=== PATIENT | male | born 1935 | race Hispanic/Latino ===

== ENCOUNTER 2018-08-02 14:18 | Observation (INO) | payer MEDICARE, BC ==
[2018-08-02 15:41] LABS: #Eosinphils 0.3 thou/uL (0.0-0.7); #Lymphocytes 1.4 thou/uL (1.20-3.40); #Monocytes 0.7 thou/uL (0.11-0.59); #Neutrophils 7.9 thou/uL (1.40-6.50); %Basophils 0.3 % (0.0-1.0); %Eosinophils 2.8 % (0.0-10.0); %Lymphocytes 13.4 % (21.0-51.0); %Monocytes 6.5 % (0.0-10.0); Hemoglobin 15.2 g/dL (14.0-18.0); Mean Corpuscular HGB CONC 33.2 g/dL (32.0-36.0); Mean Corpuscular Hemoglobin 32.2 pg (27.0-31.0); Mean Corpuscular Volume 97.1 fL (78.0-98.0); Mean Platelet Volume 7.1 fL (7.4-10.4); Platelet Count 252 thou/uL (130-400); RBC Distribution Width 12.4 % (11.5-14.5); Red Blood Cell (RBC) Count 4.73 mill/uL (4.70-6.10); White Blood Cell (WBC) Count 10.2 thou/uL (4.8-10.8)
--- NOTE | 2018-08-02 15:50 | CT ---
CT Brain WO Con: 08/02/2018 3:22 PM CLINICAL HISTORY: Syncope. COMPARISON: None. FINDINGS: Hemorrhage: None. Ventricular system: Mild compensatory dilatation related to parenchymal volume loss. Cerebral parenchyma: Microvascular ischemic disease. Small hypodensity of posterior right cerebellar hemisphere indicate lacunar infarction. Midline shift: None. Mass: No mass effect. Calvarium: Normal. Visualized Paranasal sinuses: Scattered mild inflammatory mucosal thickening. IMPRESSION: No acute intracranial hemorrhage or mass effect. Additional details, as discussed above.
--- NOTE | 2018-08-02 16:03 | RAD ---
Exam: Chest one view HISTORY:Syncope Comparison: 08/11/2010 FINDINGS: Lungs: No masses or consolidation. Cardiac silhouette: Normal size Pulmonary vessels: Normal Pleural Spaces: Clear Pneumothorax: None Osseous abnormalities: None of acuity. IMPRESSION: No focal consolidation.
[2018-08-02 16:04] LABS: ALT (SGPT) 12 U/L (8-55); AST (SGOT) 15 U/L (5-34); Albumin 4.1 g/dL (3.4-4.8); Alkaline Phosphatase 57 U/L (40-150); Anion Gap 13 mmol/L (10-20); BUN (Urea Nitrogen) 14 mg/dL (8.4-25.7); Bilirubin, Total 0.6 mg/dL (0.2-1.2); CK (CPK) 113 U/L (30-200); Calc. Creatinine Clearance 0 mL/min (70-130); Calcium 9.5 mg/dL (7.8-10.44); Carbon Dioxide 22 mmol/L (23-31); Chloride 107 mmol/L (98-107); Estimated GFR-MDRD 65; Globulin 3.5 g/dL (2.4-3.5); Glucose 105 mg/dL (83-110); Lipase 33 U/L (8-78); Protein, Total 7.6 g/dL (5.8-8.1); Sodium 138 mmol/L (136-145)
[2018-08-02] MEDS ORDERED: Aspirin Chewable 81 MG TAB ONE (16:59)
[2018-08-02 18:39] LABS: Bilirubin Negative (Negative); Blood, Urine Negative (Negative); Clarity CLEAR (Clear); Glucose, Urine (Dipstick) Negative (Negative); Leukocyte Negative (Negative); Nitrite Negative (Negative); Protein, Urine (Dipstick) Negative (Neg-Trace); Specific Gravity, Urine 1.011 (1.002-1.036); Urobilinogen 0.2 mg/dL (0.2-1.0); pH, Urine 5.5 (5.0-9.0)
[2018-08-02] MEDS ORDERED: Ondansetron PF 4 MG/2 ML Vial IVP PRN ×2 (18:57→20:15)
[2018-08-02] MEDS ORDERED: Ondansetron ODT 4 MG TAB SL PRN (18:57)
[2018-08-02] MEDS ORDERED: Sodium Chloride 0.9% 1,000 ML IV SCH (18:57)
[2018-08-02 19:15] VITALS: BMI 23.0
[2018-08-02 20:02] LABS: Troponin I Less than 0.010 ng/mL (< 0.028)
[2018-08-02] MEDS ORDERED: Benzonatate 100 MG CAP PO PRN (20:15)
[2018-08-02] MEDS ORDERED: Acetaminophen 500 MG TAB PO PRN (20:15)
[2018-08-02] MEDS ORDERED: Ondansetron ODT 4 MG TAB PO PRN (20:15)
[2018-08-02] MEDS ORDERED: Calcium Carbonate 500 MG ChewTAB PO PRN (20:15)
[2018-08-02] MEDS ORDERED: Zolpidem Tartrate 5 MG TAB PO PRN (20:15)
[2018-08-02] MEDS ORDERED: Senokot S 8.6-50 MG TAB PO PRN (20:15)
[2018-08-02 22:18] LABS: Troponin I Less than 0.010 ng/mL (< 0.028)
[2018-08-02] MEDS: Atorvastatin Calcium 40 MG TAB PO SCH (22:38)
--- NOTE | 2018-08-03 02:47 | HP ---
CHIEF COMPLAINT: Syncopal episode. HISTORY OF PRESENT ILLNESS: Patient's family is at bedside including spouse and daughter. They report that patient has had multiple and multiple episodes of bradycardia with hypotension in which he has full blown syncopal episodes to presyncope. Patient has suffered one of these episodes today that was stronger than usual for himself, took longer to come back around to questioning. They were unclear if he had a facial droop. They said his smile was off from his normal. After presenting to the emergency department, the patient appeared to be intact neurologically, he was already diagnosed with dementia on an outpatient basis, started on Aricept and/or Namenda by Dr. Emre Zacarias, his PCP. Patient remains ambulatory and compliant with ADLs at baseline. The only thing he complains of is mild dry cough, for which he states is more from acid reflux issues. He is on PPI on outpatient basis. States that he is followed by Dr. Sullivan. On review of his outpatient medical record, Dr. Sanchez is also followed him in the past regarding Gastroenterology. Most recently, he is followed by Dr. Perrin, last appointment on file was one year ago. He states he has not had an echocardiogram, carotid Doppler in several years, and is due for his Cardiology followup appointment any time now. Family is amicable to performing echo, carotid, and MRI on an inpatient basis when discussing ruling out TIA versus CVA as CT scan did show old lacunar infarct, age indeterminate. Patient has no other acute complaints as his MiraLAX controls his chronic constipation well. Review of vital signs on arrival to floor, temperature of 97.6, pulse of 53, respiratory rate of 16, oxygen saturation 95% on room air, and blood pressure 138/75. LABORATORY WORK: White blood cell count of 10.2, hemoglobin of 15.2, and neutrophil percent of 77. Troponins x2 less than 0.01. TSH of 0.5, lipase of 33. BNP of 38. Sodium 138, potassium of 4.0, creatinine of 1.09, and glucose of 105. AST of 15 , ALT of 12, and albumin of 4.1. Urinalysis unremarkable. Specific gravity is 1.01. Chest x-ray without acute cardiopulmonary events. CT of brain reviewed. No acute intracranial hemorrhage or mass effect. Small hypodense posterior right cerebral hemisphere of lacunar area representing age-indeterminate infarct, marked parenchymal volume loss with encephalomalacia, scattered inflammatory thickening of the mucosal membranes in parasinuses. On review of past medical, social, surgical history, allergies of niacin with pruritis; hyperlipidemia; CKD, stage 2; hypertension; BPH; sleep apnea, on CPAP; dementia; transitioning from Dr. Bertrand 's care from Urology outpatient, hx of prior syncopal episodes. MEDICATIONS: Include; 1. Pravastatin. 2. Gemfibrozil. 3. Fish oil. 4. Aricept. 5. Omeprazole. 6. Aspirin 81 mg. 7. Tamsulosin 0.4. 8. Finasteride 5 mg. Prior hernia repair surgery; remote prior salivary gland removal, year not specified. Patient reports being a nonsmoker. Lives with spouse. He is up to date on pneumococcal and Prevnar by outpatient records. PHYSICAL EXAMINATION: GENERAL: Patient is alert and oriented x2, unable to perform date, does know where he is and who he is and his birthday. Able to fully comply with commands. No acute distress. HEENT: Head is normocephalic and atraumatic. Extraocular movements are intact. Pupillary responses are equal, round, reactive, and accommodate to light bilaterally. Oral mucosa is moist. No appreciable facial droop, however, family does state that his smile is typically different from current at bedside. Patient's speech is normal. NECK: Supple. HEART: Regular rate and rhythm. No murmurs auscultated. LUNGS: Clear to auscultation bilaterally. No rubs or wheezes. Patient does have a dry cough at bedside. ABDOMEN: Soft, nontender. Positive bowel sounds throughout. EXTREMITIES: Lower extremities without cyanosis or edema. Patient is alert and oriented x2, as above. No apparent focal deficits other than his baseline dementia, which appears to wax and wane. Bedside swallowing eval with nursing is passed. Patient has no acute complaints other than his cough. ASSESSMENT AND PLAN: 1. Transient ischemic attack, rule out cerebrovascular accident. 2. Syncopal episode. 3. Obstructive sleep apnea, on CPAP. 4. Bradycardia. 5. Vascular dementia. 6. Questionable sinusitis per CT scan. 7. BPH. 8. Gastroesophageal reflux disease. 9. History of first-degree AV block reviewing Dr. Perrin's Last note. Follow up with MRI, echocardiogram, and carotid Dopplers. We will seek Cardiology's recommendations. Repeat EKG in the morning given the fact that this actually may be cardiogenic syncope given his bradycardia and hypotension. We will follow up with a lacunar infarct evaluation with MRI and get Neurology's opinion if patient needs anything additional than aspirin at this point in time. We will hold patient's tamsulosin and see if his blood pressure remains stable and patient is able to ambulate with walking program or physical therapy tomorrow. We will reinitiate if patient has any obstructive symptoms on urination. Continue PPI. Get respiratory therapy to evaluate patient for CPAP, BiPAP mask tonight. If any signs or symptoms of fever, we will look to treat sinusitis. Otherwise, we will follow up on the throat culture. We will follow up on specialist's recommendations. Continue to follow until Dr. Andrea takes over. Job ID: [id number] MTDD
[2018-08-03] MEDS: Aspirin 325 mg Enteric Coated Tablet PO SCH (08:41)
[2018-08-03 08:46] LABS: Anion Gap 8 mmol/L (10-20); BUN (Urea Nitrogen) 10 mg/dL (8.4-25.7); Calc. Creatinine Clearance 58 mL/min (70-130); Calcium 8.8 mg/dL (7.8-10.44); Carbon Dioxide 25 mmol/L (23-31); Cardiac Risk 3.5 (Less than 4.5); Chloride 109 mmol/L (98-107); Cholesterol 115 mg/dl (< 200 Desired); Estimated GFR-MDRD 72; Glucose 95 mg/dL (83-110); HDL Cholesterol 33 mg/dL (>60 Neg Risk); LDL Cholesterol, Calculated 69 mg/dL; Potassium 3.9 mmol/L (3.5-5.1); Sodium 138 mmol/L (136-145); Triglycerides 63 mg/dL (Less than 150)
[2018-08-03] MEDS: Polyethylene Glycol 3350 17 GM Packet PO SCH (08:49)
--- NOTE | 2018-08-03 11:18 | ULT ---
BILATERAL CAROTID DUPLEX ULTRASOUND: HISTORY: TIA TECHNIQUE: Grayscale, color-flow and spectral Doppler ultrasound imaging of the extracranial carotid artery syst ems was performed bilaterally. FINDINGS: Mild plaque formation. The peak systolic velocity in the right ICA measures 80 cm/s. The peak systolic velocity in the left ICA measures 64 cm/s. Vertebral flow: antegrade, bilaterally. IMPRESSION: No hemodynamically significant stenosis of Both ICAs.
--- NOTE | 2018-08-03 11:55 | MRI ---
MRI Brain WO Con: 08/03/2018 12:00 AM CLINICAL HISTORY: TIA. COMPARISON: None. FINDINGS: Extra axial spaces: Normal in size and morphology for the patient's age. Acute infarction: None. Ventricular system: Normal in size and morphology for the patient's age. Basal cisterns: Normal. Cerebral parenchyma: Minimal microvascular ischemic change. Midline shift: None. Cerebellum: Normal. Brainstem: Normal. Paranasal sinuses:Scattered paranasal sinus mucosal thickening as well as fluid level involving the r ight maxillary sinus IMPRESSION:No acute intracranial abnormality.
--- NOTE | 2018-08-03 15:26 | CON ---
DATE OF CONSULTATION: 08/03/2018 CONSULTING PHYSICIAN: Hospitalist Service. IMPRESSION: 1. Syncope likely secondary to either hypotension or bradycardia. 2. 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 PLAN: 1. Continue aspirin and statin. 2. Workup at your discretion. HISTORY OF PRESENT ILLNESS: Mr. Mahan is an 82-year-old gentleman with a known history of hypotension. He is followed by Dr. Perrin. He has had multiple episodes of lightheadedness and dizziness over the past. He was in a restaurant and walking to the bathroom when he started to feel woozy. He sat down into a chair and his eyes rolled upward in his head, according to his daughter. They held him up and they noted that he was cold, clammy, and broke out in a sweat. He then threw up and gradually regained consciousness. Upon awakening, there was no lateralized weakness or numbness reported by the patient. He denies any past history of stroke symptoms. He was brought into the emergency room where a CT was done. Results revealed lacunar infarction in the right posterior cerebellar hemisphere. His lab work was all unremarkable. His pulse was in the 50s. He is feeling fine this morning. He has been up to the bathroom and walking about independently. He is without any other complaints at this point. PAST MEDICAL HISTORY: Mild cognitive impairment, bradycardia. ALLERGIES: NIACIN. SOCIAL HISTORY: No tobacco or alcohol use. FAMILY HISTORY: Noncontributory. MEDICATIONS: Medication list was reviewed, which includes aspirin and a statin. REVIEW OF SYSTEMS: Ten-system review of systems is otherwise negative. PHYSICAL EXAMINATION: GENERAL: He is a healthy-appearing elderly man, sitting in bed, in no acute distress. VITAL SIGNS: Blood pressure 138/75, pulse 53, respirations 16, and temperature 97.6. HEENT: Pupils equal and reactive. Conjunctivae clear. Oropharynx clear. Cranium, normocephalic and atraumatic. NECK: Supple. No lymphadenopathy. EXTREMITIES: No cyanosis, clubbing, or edema. NEUROLOGIC: He was alert and cooperative. His speech was fluent and clear. Followed commands appropriately. Cranial nerves were intact without any focal weakness or facial droop. Sensation was intact to light touch. Motor exam showed good lead informatica developer strength, and no fix or drift. Cerebellar testing showed normal [id number] and rapid alternating movements. He can walk independently. No abnormal movements were seen. LABORATORY DATA: Reviewed. IMAGING STUDIES: Reviewed. SUMMARY: This is an elderly gentleman with a history of bradycardia, who had a syncopal episode with diaphoresis, nausea, and vomiting. I do not see any evidence of a stroke. The prior findings on CAT scan would be chronic given that they were present on arrival to the admission. I do not see a need for any further workup, but followup with his nuclear physicist would seem appropriate. Job ID: [id number]
--- NOTE | 2018-08-03 15:46 | CON ---
DATE OF CONSULTATION: HISTORY OF PRESENT ILLNESS: An 82-year-old gentleman, who was admitted after nearly loosing consciousness. The patient states that he first had an episode nearly 30 years ago, where he suddenly becomes lightheaded and weak. He states that these often occur after eating a large meal. The patient states that in the past several years, he has had 2 to 3 other episodes, where he suddenly gets weak. He was at a restaurant yesterday when he had eaten a large meal. He went up to go to the bathroom. He felt weak and had to sit down. The patient was responsive. He did not lose consciousness, but could not respond appropriately. The patient was taken to the emergency room for further evaluation. The patient denied having any chest discomfort. The patient has been followed by Dr. Perrin. He has apparently undergone a cardiac evaluation including a Holter monitor that was unremarkable. The patient denies having any palpitations, PND, or orthopnea. PAST MEDICAL HISTORY: BPH. PAST SURGICAL HISTORY: Salivary gland surgery. SOCIAL HISTORY: Nonsmoker. MEDICATIONS: 1. Flomax 0.4 daily. 2. Aspirin 81 daily. 3. Proscar 5 daily. 4. Aricept 5 mg daily. 5. Gemfibrozil 600 b.i.d. 6. Prilosec 40 daily. 7. Pravastatin 40 daily. ALLERGIES: NIACIN. FAMILY HISTORY: No strong family history of heart disease. REVIEW OF SYSTEMS: Ten-point system, otherwise unremarkable. PHYSICAL EXAMINATION: GENERAL: Well-developed gentleman, in no acute distress. VITAL SIGNS: Blood pressure 109/75. NECK: No jugular venous distention. No carotid bruits. LUNGS: Clear to auscultation. HEART: Regular rate and rhythm. Normal S1 and S2. ABDOMEN: Nondistended. EXTREMITIES: Show no edema. VASCULAR: Radial pulses are 2+. LABORATORY DATA: Sodium 138, potassium 3.9, chloride 109, bicarbonate 25, BUN 10, and creatinine 0.99. Troponin less than 0.01. BNP 38. His white blood cell count is 10.2, hemoglobin 15.2, hematocrit 45.9, and platelets are 252. IMAGING DATA: His EKG reveals sinus bradycardia with an otherwise normal ECG. His echo currently on normal left ventricular ejection fraction of approximately 55% to 60%. His carotid ultrasound revealed no hemodynamically significant stenosis. His brain MRI revealed him to have no acute intracranial abnormality with evidence of a possible previous lacunar infarct on CT scan. IMPRESSION: 1. Near-syncope, possibly vasovagal. 2. Benign prostatic hyperplasia. 3. Dyslipidemia. 4. Dementia. PLAN: This gentleman presented with a near syncopal episode. He has a mild bradycardia. He is followed primarily by Dr. Perrin. We would check the patient's orthostatics. I agree with discontinuing the patient's Flomax and Proscar. We will follow this patient with you through his hospitalization. Job ID: [id number] [facility]
[2018-08-03] MEDS: Atorvastatin Calcium 40 MG TAB PO SCH (21:00)
[2018-08-03] MEDS: Amoxicillin/Potassium Clav 875 MG TAB PO SCH (21:00)
--- NOTE | 2018-08-03 21:26 | PRG ---
DATE OF SERVICE: 08/03/2018 HISTORY OF PRESENT ILLNESS: The patient's spouse and daughter at bedside, who verbalized understanding regarding MRI and carotids not showing any signs of CVA other than baseline small-vessel changes. The patient has already been diagnosed with dementia on outpatient basis. The patient continues to have some symptoms of sundowning and some difficulty with short-term memory, difficulty with time, aware of person and setting; however, feels that he was in [place] today. Knows that he lives in [place], however. Cardiology has visited with the patient regarding his multiple episodes of syncope in the past. He sees Dr. Perrin on outpatient basis. Hypotension and bradycardia reported by family on a consistent basis, the patient is not currently on any medications for. Vital signs this morning; temperature of 98.6, pulse of 68, respiratory rate of 16, oxygen saturation 93% on room air, blood pressure 127/75. Creatinine of 0.99, sodium of 138, potassium 3.9, triglycerides of 63, cholesterol total 115. TSH 0.4. BNP of 38. Carotids without any significant stenosis. PHYSICAL EXAMINATION: GENERAL: The patient is alert, in no acute distress. HEENT: Head is normocephalic and atraumatic. Extraocular movements are intact. Sclerae are white. Pupils equal, round, reactive to light and accommodate. ABDOMEN: Soft, nontender. Positive bowel sounds throughout. EXTREMITIES: Lower extremities without cyanosis or edema. LUNGS: Clear to auscultation bilaterally. No rubs or wheezes. NEURO: Alert and oriented x1 to x2 as above. PLAN: Continue current medications, adding in Augmentin for sinusitis present on MRI. Full-dose aspirin, currently statin. Given the patient's potential cardiogenic syncope, we will forgo the patient's BPH medication and any current blood pressure medication. Instituted MiraLAX for the patient's chronic history of constipation. We will have respiratory therapy follow up for the patient's CPAP needs. Follow up on Cardiology recommendations. I spoke with Dr. Emre Zacarias for followup in the morning. Potential discharge home if no intervention or follow up with Dr. Perrin on outpatient basis. Job ID: [id number]
[2018-08-04 07:52] VITALS: BP 115/73; TEMP 98.9
[2018-08-04] MEDS: Aspirin 325 mg Enteric Coated Tablet PO SCH (08:45)
[2018-08-04] MEDS: Amoxicillin/Potassium Clav 875 MG TAB PO SCH (08:45)
[2018-08-04] MEDS: Polyethylene Glycol 3350 17 GM Packet PO SCH (08:59)
--- NOTE | 2018-08-04 11:29 | DIS ---
DATE OF ADMISSION: 08/02/2018 DATE OF DISCHARGE: 08/04/2018 DISCHARGE DIAGNOSES: 1. Vasovagal reaction. 2. Near syncope. 3. Obstructive sleep apnea. 4. Bradycardia. 5. Vascular dementia. 6. Sinusitis. 7. BPH. 8. Reflux. 9. First-degree AV block. DISCHARGE MEDICATIONS: 1. Augmentin 875 one p.o. b.i.d., #14. 2. Flomax 0.4 daily. 3. Pravastatin 40 daily. 4. Omeprazole 40 daily. 5. Fish oil 1000 daily. 6. Multivitamin daily. 7. Gemfibrozil 600 b.i.d. 8. Finasteride 5 daily. 9. Aricept 5 daily. 10. Vitamin D3, 1000 daily. BRIEF HISTORY: This is an 82-year-old, male, who presents with near syncope. The patient's reports he has had 4 of these episodes in the past. It occurs every time he eats a large meal. He presented with a similar episode to the ER, and he was admitted for further evaluation. HOSPITAL COURSE: MRI of his brain was unremarkable for any acute event. The carotid Dopplers were unremarkable. Dr. Ivey was consulted, who felt the patient did not have any neurologic episode. Dr. Sosa was also consulted. It is also possible that his symptoms were aggravated by his recent initiation of Flomax b.i.d. The patient will be discharged with only changes in medications will include a course of Augmentin 875 b.i.d., #14 for sinusitis; and his Flomax will be decreased from b.i.d. to daily. He will follow up in the office in 2 days. I suspect his episodes may continue. I have instructed his to maybe not give him large meals, which seem to trigger these episodes. It sounds like these could be a vasovagal type reaction. White count was 10.2, hemoglobin and hematocrit are 15 and 45. Electrolytes normal. Creatinine 0.99, BUN 10. Triglyceride 63; cholesterol 115; LDL 69, HDL 33, ratio 3.5. TSH 0.4229. BNP 38. Troponin-I less than 0.010 x3. Chest x-ray negative. Job ID: [id number]
--- NOTE | 2018-08-09 11:33 | EKG ---
Test Reason : Blood Pressure : / mmHG Vent. Rate : 057 BPM Atrial Rate : 057 BPM P-R Int : 208 ms QRS Dur : 082 ms QT Int : 426 ms P-R-T Axes : 022 022 011 degrees QTc Int : 414 ms Sinus bradycardia Otherwise normal ECG Confirmed by GERARD LAN ([id number]), communications editor FREDERIC VANCE ([id number] on 08/09/2018 11:33:16 AM Referred By: Confirmed By:GERARD LAN
--- NOTE | 2018-08-11 18:49 | EKG ---
Test Reason : Blood Pressure : / mmHG Vent. Rate : 052 BPM Atrial Rate : 052 BPM P-R Int : 250 ms QRS Dur : 086 ms QT Int : 422 ms P-R-T Axes : 039 030 026 degrees QTc Int : 392 ms Sinus bradycardia with sinus arrhythmia with 1st degree A-V block Otherwise normal ECG When compared with ECG of 02-AUG-2018 14:33, (Unconfirmed) IA interval has increased Confirmed by BLAISE SHARMA ([id number]) on 08/11/2018 6:48:45 PM Referred By: SHABNAM Confirmed By:BLAISE SHARMA
== END 2018-08-04 09:09 | disposition home or self-care (01) ==
LOC: ERS 14:18 → 2SE 19:02
PROVIDERS: ADMIT Family Medicine; ATTEND Family Medicine
DX: R55 Syncope and collapse (principal); R00.1 Bradycardia, unspecified; I95.9 Hypotension, unspecified; F01.50 Vascular dementia, unspecified severity, without behavioral disturbance, psychotic disturbance, mood disturbance, and anxiety; G47.33 Obstructive sleep apnea (adult) (pediatric); K21.9 Gastro-esophageal reflux disease without esophagitis; K59.09 Other constipation; N40.0 Benign prostatic hyperplasia without lower urinary tract symptoms; Z79.82 Long term (current) use of aspirin; Z79.899 Other long term (current) drug therapy; Z88.8 Allergy status to other drugs, medicaments and biological substances; Z99.89 Dependence on other enabling machines and devices
CPT/HCPCS: 70450; 70551; 71045; 80048; 80061; 81003; 82140; 82550; 83690; 83880; 84443; 84484 ×2; 87070; 93005 ×2; 93306; 93880; 96360; 96361; 97139; 99285; G0378 ×2; 36415; 80053; 85025; 93010

== ENCOUNTER 2018-09-25 18:12 | Emergency (ER) | payer MEDICARE, BC ==
[2018-09-25 18:55] LABS: #Eosinphils 0.3 thou/uL (0.0-0.7); #Lymphocytes 1.9 thou/uL (1.20-3.40); #Monocytes 0.5 thou/uL (0.11-0.59); %Basophils 0.4 % (0.0-1.0); %Eosinophils 4.4 % (0.0-10.0); %Lymphocytes 32.9 % (21.0-51.0); %Monocytes 8.5 % (0.0-10.0); %Neutrophils 53.7 % (42.0-75.0); Hemoglobin 14.4 g/dL (14.0-18.0); Mean Corpuscular HGB CONC 33.5 g/dL (32.0-36.0); Mean Corpuscular Hemoglobin 31.7 pg (27.0-31.0); Mean Corpuscular Volume 94.5 fL (78.0-98.0); Mean Platelet Volume 6.8 fL (7.4-10.4); Platelet Count 244 thou/uL (130-400); RBC Distribution Width 12.2 % (11.5-14.5); Red Blood Cell (RBC) Count 4.55 mill/uL (4.70-6.10); White Blood Cell (WBC) Count 5.6 thou/uL (4.8-10.8)
[2018-09-25 19:14] LABS: ALT (SGPT) 10 U/L (8-55); AST (SGOT) 13 U/L (5-34); Albumin 3.8 g/dL (3.4-4.8); Alkaline Phosphatase 63 U/L (40-150); Anion Gap 13 mmol/L (10-20); BUN (Urea Nitrogen) 11 mg/dL (8.4-25.7); Bilirubin, Total 0.6 mg/dL (0.2-1.2); Calc. Creatinine Clearance 0 mL/min (70-130); Calcium 9.4 mg/dL (7.8-10.44); Carbon Dioxide 22 mmol/L (23-31); Chloride 107 mmol/L (98-107); Estimated GFR-MDRD 59; Globulin 3.2 g/dL (2.4-3.5); Glucose 102 mg/dL (83-110); Potassium 4.1 mmol/L (3.5-5.1); Sodium 138 mmol/L (136-145)
--- NOTE | 2018-09-25 19:22 | RAD ---
CHEST ONE VIEW: 09/25/18 HISTORY: Syncopal episodes. COMPARISON: 08/02/18. FINDINGS: Electrode device overlies the chest. Heart size is within normal limits. The lungs are clear of acute process. IMPRESSION: No significant acute intrathoracic disease. POS: RRE
== END 2018-09-25 20:30 | disposition home or self-care (01) ==
LOC: ERS 18:12
DX: R42 Dizziness and giddiness (principal); E78.00 Pure hypercholesterolemia, unspecified; G47.30 Sleep apnea, unspecified; I10 Essential (primary) hypertension; F03.90 Unspecified dementia, unspecified severity, without behavioral disturbance, psychotic disturbance, mood disturbance, and anxiety; Z79.899 Other long term (current) drug therapy
CPT/HCPCS: 36415; 71045; 80053; 83880; 84484; 85025; 93005; 94760

== ENCOUNTER 2018-09-30 20:30 | Outpatient (CLI) | payer MEDICARE, BC | END 2018-09-30 20:31 | disposition home or self-care (01) | LOC: SLEEPLAB 20:30 | PROVIDERS: ATTEND Family Medicine | DX: G47.33 Obstructive sleep apnea (adult) (pediatric) (principal); F51.9 Sleep disorder not due to a substance or known physiological condition, unspecified; I10 Essential (primary) hypertension; R53.83 Other fatigue; F32.9 Major depressive disorder, single episode, unspecified; G47.31 Primary central sleep apnea | CPT/HCPCS: 95811 ==

== ENCOUNTER 2022-03-08 03:29 | Emergency (ER) | payer MEDICARE, BC ==
[2022-03-08] MEDS ORDERED: Boostrix 0.5 ML (Tdap) VIAL (>/=7 yrs of age) ONE (04:01)
[2022-03-08 05:00] LABS: #Eosinphils 0.3 thou/uL (0.0-0.7); #Lymphocytes 2.1 thou/uL (1.20-3.40); #Monocytes 0.6 thou/uL (0.11-0.59); #Neutrophils 4.9 thou/uL (1.40-6.50); %Basophils 0.5 % (0.0-1.0); %Eosinophils 3.7 % (0.0-10.0); %Lymphocytes 26.7 % (21.0-51.0); %Monocytes 7.9 % (0.0-10.0); %Neutrophils 61.2 % (42.0-75.0); Mean Corpuscular HGB CONC 33.8 g/dL (32.0-36.0); Mean Corpuscular Hemoglobin 32.4 pg (27.0-31.0); Mean Corpuscular Volume 95.8 fl (78.0-98.0); Mean Platelet Volume 7.1 fL (7.4-10.4); Platelet Count 250 10x3/uL (130-400); RBC Distribution Width 12.3 % (11.5-14.5); Red Blood Cell (RBC) Count 4.94 mill/uL (4.70-6.10); White Blood Cell (WBC) Count 7.9 10x3/uL (4.8-10.8)
[2022-03-08 05:13] LABS: ALT (SGPT) 11 U/L (8-55); AST (SGOT) 15 U/L (5-34); Albumin 3.8 g/dL (3.4-4.8); Alcohol Less than 10 mg/dL (Less than 10); Alkaline Phosphatase 66 U/L (40-110); Anion Gap 13 mmol/L (10-20); BUN (Urea Nitrogen) 15 mg/dL (8.4-25.7); Bilirubin, Total 0.7 mg/dL (0.2-1.2); Calc. Creatinine Clearance 0 mL/min (70-130); Calcium 9.6 mg/dL (7.8-10.44); Carbon Dioxide 24 mmol/L (23-31); Chloride 108 mmol/L (98-107); Estimated GFR 58; Globulin 3.3 g/dL (2.4-3.5); Glucose 97 mg/dL (83-110); Potassium 4.7 mmol/L (3.5-5.1); Protein, Total 7.1 g/dL (5.8-8.1); Sodium 140 mmol/L (136-145)
== END 2022-03-08 06:11 | disposition home or self-care (01) ==
LOC: ERS 03:29
DX: R55 Syncope and collapse (principal); S00.81XA Abrasion of other part of head, initial encounter; E78.00 Pure hypercholesterolemia, unspecified; I10 Essential (primary) hypertension; W19.XXXA Unspecified fall, initial encounter
CPT/HCPCS: 36415; 70450; 71045; 72125; 80053; 80307; 84484; 85025; 90471; 90715; 93005; 94760